=== PATIENT | female | born 1995 | race Caucasian/White ===

== ENCOUNTER 2022-08-12 18:11 | Observation (INO) | payer MEDICAID ==
[~2022-08-12] VITALS: Ht 162.6 cm; Wt 100.7 kg
[2022-08-12] MEDS ORDERED: PNV1TABL50 MT (19:15)
[2022-08-12 20:00] LABS: CLARITY URINE CLOUDY (CLEAR); COLOR URINE YELLOW (YELLOW); KETONES URINE 1+ (NEGATIVE); LEUKOCYTE ESTERASE URINE 1+ (NEGATIVE); NITRITE URINE POSITIVE (NEGATIVE); OCCULT BLOOD URINE NEGATIVE (NEGATIVE); PH URINE 6.5 (4.5-8.0); PROTEIN URINE TRACE (NEGATIVE); SPECIFIC GRAVITY URINE 1.022 (1.005-1.030)
[2022-08-12] MEDS ORDERED: CEFAZOLIN 2,000 MG in DEXT 5% WATER 100 ML IV NR (21:00)
[2022-08-12] MEDS ORDERED: LACTATED RINGERS 1,000 ML IV SCH (21:00)
== END 2022-08-12 22:22 | disposition home or self-care (01) ==
LOC: 8 EST LDRP 18:11
PROVIDERS: ADMIT Obstetrics & Gynecology; ATTEND Obstetrics & Gynecology
DX: O26.893 Other specified pregnancy related conditions, third trimester (principal); R10.30 Lower abdominal pain, unspecified; O99.891 Other specified diseases and conditions complicating pregnancy; M54.9 Dorsalgia, unspecified; M79.652 Pain in left thigh; Z3A.33 33 weeks gestation of pregnancy; Z79.899 Other long term (current) drug therapy
CPT/HCPCS: 59025; 76805; 76810; 81003; 96365; G0378; J0690; J7060; 76815; 76818; 96360; 96361; 99281